=== PATIENT | female | born 1950 | race Caucasian/White ===

== ENCOUNTER 2020-10-27 10:41 | Outpatient (CLI) | payer OTHER, SELFPAY ==
--- NOTE | ~2020-10-27 | MM_ITS ---
EXAMINATION: MM screening [facility] BI w cesar HISTORY: Screening TECHNIQUE: Craniocaudal and mediolateral oblique 3-D tomosynthesis images were obtained and synthetic 2-D images were generated. CAD analysis was submitted and interpreted. COMPARISON: Comparison to multiple prior studies sequentially, with oldest reviewed study dated 04/26. BREAST PARENCHYMAL COMPOSITION: The breasts are almost entirely fatty. FINDINGS: There is no evidence of suspicious mass, calcification, or architectural distortion to sugg est malignancy in either breast. There has been no suspicious interval change. IMPRESSION: 1. No mammographic evidence of malignancy. 2. Recommend routine screening mammography in one year. BI-RADS Category 1: Negative Reviewed, dictated and finalized at location A.
== END 2020-10-27 10:42 | disposition home or self-care (01) ==
LOC: ANHIMG 10:45
PROVIDERS: PCP Internal Medicine; Visit Provider Nurse Practitioner
DX: Z12.31 Encounter for screening mammogram for malignant neoplasm of breast (principal)
CPT/HCPCS: 77063; 77067

== ENCOUNTER 2021-06-14 12:12 | Outpatient (CLI) | payer OTHER, SELFPAY ==
--- NOTE | ~2021-06-14 | DEXA_ITS ---
Bone Density Report Name: CHARLEE HOUSE Age: 70 Sex: Female Ethnicity: White Date of : 1950 Indication: postmenopausal; Referring Provider: Simran Rondon Study: Bone densitometry was performed. Exam Date: June 14, 2021 Accession number: [id number] Bone Density: Region BMD T-score Z-score Classification AP Spine (L1-L4) 1.123 0.7 2.9 Normal Femoral Neck (Left) 0.808 -0.4 1.6 Normal Total Hip (Left) 0.971 0.2 1.9 Normal Total Hip Bilateral Avg 0.965 0.2 1.9 Normal Femoral Neck (Right) 0.854 0.0 2.0 Normal Total Hip (Right) 0.958 0.1 1.8 Normal World Health Organization criteria for BMD impression classify patients as: Normal (T-score at or above -1.0), Osteopenia (T-score between -1.0 and -2.5), or Osteoporosis (T-score at or below -2.5). 10-year Fracture Risk: FRAX not reported because: All T-scores for Spine Total, Hip Total, Femoral Neck at or above -1.0 Previous Exams: Region Exam Age BMD T-score BMD Change BMD Change Date g/cm2 vs Baseline vs Previous AP Spine(L1-L4) 06/14/2021 70 1.123 0.7 0.075(7.2%)# 0.075(7.2%)# 05/07/2012 61 1.048 0.0 Total Hip(Left) 06/14/2021 70 0.971 0.2 0.028(2.9%)# -0.021(-2.1%) 03/27/2019 68 0.992 0.4 0.049(5.2%)# 0.049(5.2%)# 05/07/2012 61 0.943 0.0 Total Hip(Right) 06/14/2021 70 0.958 0.1 -0.015(-1.5%)# -0.031(-3.1%)* 03/27/2019 68 0.989 0.4 0.016(1.7%)# 0.016(1.7%)# 05/07/2012 61 0.973 0.3 *Denotes significance at 95% confidence level, LSC for AP Spine = 0.022 g/cm2, LSC for Total Hip = 0.027 g/cm2 Clinical Information Provided by Patient: Has used the following medications: Vitamin D Patient maximum height was 65 Menopause Age: 48 Drinks caffeinated beverages Onset of menses at age 8 Number of children 2 Impression: The patient has normal bone mass. The BMD for the Total Hip(Right) decreased, changing by -3.1% since the last DXA exam. Discussion: BONE DENSITY IS ABOVE THE MINIMUM DESIRABLE LEVEL AT ALL SKELETAL SITES TESTED. This patient?s bone mineral density is above the minimum desirable level (T-score -1.0 or better) at all sites measured. The patient should follow a healthful lifestyle (good nutrition with adequate calcium and vitamin D, and appropriate weight-bearing exercise). Follow-Up: Consider repeating this study in 3 to 4 years to reassess this patient's status, or sooner if there is some new clinical indication.
== END 2021-06-14 12:13 | disposition home or self-care (01) ==
LOC: ANHIMG 12:14
PROVIDERS: PCP Internal Medicine; Visit Provider Nurse Practitioner
DX: Z78.0 Asymptomatic menopausal state (principal)
CPT/HCPCS: 77080

== ENCOUNTER 2021-07-13 13:03 | Outpatient (CLI) | payer OTHER, SELFPAY ==
--- NOTE | ~2021-07-13 | US_ITS ---
EXAMINATION: US soft tissue head and neck DATE: 07/13/2021 13:47 INDICATION: Left neck pain with burning sensation and pulsatile tinnitus. TECHNIQUE: Multiple grayscale and Doppler ultrasound images of the left neck from the preauricular to the supraclavicular regions were obtained. COMPARISON: None FINDINGS: A few normal-sized cervical lymph nodes identified on the provided images and real-time imaging. No a bnormal masses or fluid collections identified. Visualized portion of the left thyroid is unremarkabl e. Small amount of atherosclerotic plaque at the left carotid bulb which does not appear hemodynamica lly significant. IMPRESSION: 1. Small amount of atherosclerotic plaque at the left carotid bulb which does not appear hemodynamica lly significant. 2. Otherwise unremarkable ultrasound of the left neck with no etiology for reported pain and no abnor mal masses or fluid collections. Reviewed, dictated and finalized at location A. FARM LABORER IMPRESSION: 1. Small amount of atherosclerotic plaque at the left carotid bulb which does n ot appear hemodynamically significant. 2. Otherwise unremarkable ultrasound of the left neck with no etiology for repo rted pain and no abnormal masses or fluid collections.
== END 2021-07-13 13:04 | disposition home or self-care (01) ==
LOC: ANHIMG 13:06
PROVIDERS: PCP Internal Medicine; Visit Provider Internal Medicine
DX: M54.2 Cervicalgia (principal)
CPT/HCPCS: 76536

== ENCOUNTER 2021-12-02 07:33 | Outpatient (CLI) | payer OTHER, SELFPAY ==
--- NOTE | ~2021-12-02 | MM_ITS ---
EXAMINATION: MM screening [facility] BI w cesar HISTORY: Screening mammogram TECHNIQUE: Craniocaudal and mediolateral oblique 3-D tomosynthesis images were obtained and synthetic 2-D images were generated. CAD analysis was submitted and interpreted. COMPARISON: 10/27/2020, 03/27/2019 BREAST PARENCHYMAL COMPOSITION: There are scattered areas of fibroglandular density. FINDINGS: There is no suspicious mass, calcification, or architectural distortion to suggest malignan cy in either breast. There has been no suspicious interval change. IMPRESSION: 1. No mammographic evidence of malignancy. 2. Recommend routine screening mammography in one year. BI-RADS Category 1: Negative Reviewed, dictated and finalized at location A.
== END 2021-12-02 07:34 | disposition home or self-care (01) ==
PROVIDERS: PCP Internal Medicine; Visit Provider Internal Medicine
DX: Z12.31 Encounter for screening mammogram for malignant neoplasm of breast (principal)
CPT/HCPCS: 77063; 77067

== ENCOUNTER 2022-08-11 10:52 | Emergency (ER) | payer OTHER, SELFPAY ==
[2022-08-11 11:30] VITALS: BP 154/83; PULSE 73; RESP 16; TEMP 37; O2SAT 99
--- NOTE | 2022-08-11 12:07 | ED.SKABFB ---
HPI - Skin/Abscess/Foreign Bdy General Chief complaint: Extremity Injury, Upper Stated complaint: right infected pinky finger Time Seen by Provider: 08/11/22 12:07 Source: patient Mode of arrival: ambulatory Limitations: no limitations History of Present Illness HPI narrative: 71-year-old female presents with concern for infection to nail of right little finger. She reports redness, tenderness on palpation. States that the nail is thicker than usual. Is unable to get in with her primary care physician for another 2 weeks. All systems reviewed and negative except as noted above. Related Data Home Medications Medication Instructions Recorded Confirmed cholecalciferol (vitamin D3) 250 250 mcg PO DAILY 04/05/21 06/07/22 mcg (10,000 unit) tablet omega-3 fatty acids 1,000 mg 1,000 mg PO DAILY 04/05/21 06/07/22 capsule (Fish Oil Concentrate) cetirizine 10 mg tablet 10 mg PO DAILY PRN 10/19/21 06/07/22 Allergies Allergy/AdvReac Type Severity Reaction Status Date / Time Sulfa (Sulfonamide Allergy Unknown Blurry Verified 08/11/22 12:04 Antibiotics) Vision Review of Systems Review of Systems: CONSTITUTIONAL: Denies fever, chills, or sweats. EYES: Denies visual changes, redness, or discharge. ENT: Denies rhinorrhea, congestion, sore throat, or otalgia. CARDIOVASCULAR: Denies chest pain, palpitations, or edema. RESPIRATORY: Denies cough or dyspnea. GASTROINTESTINAL: Denies abdominal pain, nausea, vomiting, or diarrhea. GENITOURINARY: Denies dysuria or hematuria. SKIN: Denies rash or itching. Reports redness and tenderness to right little finger nail. MUSCULOSKELETAL: Denies back pain, joint pain, or myalgia. NEUROLOGIC: Denies headache, numbness, or weakness. PSYCHIATRIC: Denies anxiety or depression. All other systems reviewed are negative, except as documented in HPI. [facility] Past Medical History Medical History Hypertension Mixed hyperlipidemia Vitamin D deficiency Vitamin deficiency Surgical History Surgical History History of appendectomy History of repair of left rotator cuff History of tonsillectomy Family History Family History Mother Family history of lung cancer Patient's mother is Sibling Patient's sister is in good health Patient's brother is in good health Social History Social History Smoking status: Never smoker Second hand tobacco smoke exposure: No Alcohol intake: current Alcohol use details: social Substance use: never Substance use type: does not use Comments At time of signature, agree with nursing past medical, surgical, social and family history. There is no relevant family history pertinent to the presenting complaint. Exam Narrative: GENERAL: This is a well-nourished, well-developed patient, in no apparent distress. HEAD: normocephalic, atraumatic. EYES: PERRL. Sclera clear/white. Vision is grossly intact. EARS: External ears normal NOSE: External nose normal NECK: Neck supple, non-tender without lymphadenopathy, masses or thyromegaly. CARDIOVASCULAR: Regular rate and rhythm without murmurs, gallops, or rubs. RESPIRATORY: Clear to auscultation. Breath sounds equal bilaterally. No wheezes, rales, or rhonchi. SKIN: warm, Dry, intact with no suspicious lesions or rash, good texture and turgor. mild erythema noted under nail bed of right little finger. No drainage noted. Tender on palpation. NEURO: awake, alert, and oriented to person, place and time. There were no obvious focal neurologic abnormalities. EXTREMITIES: No joint tenderness, effusion, or edema noted. Course Course Level of Care: Express Care Visit Vital Signs Vital signs: Vital Signs Temperature 37.0 C 08/11/22 11:30 Pulse
== END 2022-08-11 12:25 | disposition home or self-care (01) ==
PROVIDERS: Emergency Provider Nurse Practitioner Family
DX: L03.011 Cellulitis of right finger (principal); I10 Essential (primary) hypertension; E78.2 Mixed hyperlipidemia; E55.9 Vitamin D deficiency, unspecified
CPT/HCPCS: 99213; G0463

== ENCOUNTER 2023-01-09 12:45 | Emergency (ER) | payer OTHER, SELFPAY ==
[2023-01-09 12:58] VITALS: BP 170/84; PULSE 79; RESP 16; TEMP 35.8; O2SAT 100
--- NOTE | 2023-01-09 13:01 | ED.DENTAL ---
HPI - Dental/Oral General Chief complaint: Dental/Oral Stated complaint: Sore in mouth; may be infected Time Seen by Provider: 01/09/23 13:01 Source: patient, RN notes reviewed and old records reviewed Mode of arrival: ambulatory Limitations: no limitations History of Present Illness HPI Narrative: 72 year old female who presents to [facility] care with complaints of abscess to gum along the anterior aspect of her bottom left gum near the 22 tooth with ulcer to inner mouth also left lower mouth that are painful and making it difficult to eat. Patient reports that she has used some salt water gargles which has helped some but pain remains 12/03, is burning. MD Complaint: tooth pain (abscess anterior gum along #22 tooth and ulcer to inner left mouth) Onset (ago): day(s) (3-4 days) Severity scale (1-10): 6 Treatment prior to arrival: other (salt water gargles) Related Data Home Medications Medication Instructions Recorded Confirmed cholecalciferol (vitamin D3) 250 250 mcg PO DAILY 04/05/21 01/09/23 mcg (10,000 unit) tablet Allergies Allergy/AdvReac Type Severity Reaction Status Date / Time Sulfa (Sulfonamide Allergy Unknown Blurry Verified 01/09/23 12:55 Antibiotics) Vision Review of Systems Review of Systems: CONSTITUTIONAL: Denies fever, chills, or sweats. ENT: Denies rhinorrhea, congestion, sore throat, or otalgia. Reports dental pain from gum abscess near anterior aspect #22 tooth and also ulcer to inner left side of inner mouth CARDIOVASCULAR: Denies chest pain, palpitations, or edema. RESPIRATORY: Denies cough or dyspnea. SKIN: Denies rash or itching. MUSCULOSKELETAL: Denies myalgia.[facility] NEUROLOGIC: Denies headache All systems reviewed & are unremarkable except as noted in HPI and below PMFSH Past Medical History Medical History Hypertension Mixed hyperlipidemia Vitamin D deficiency Surgical History Surgical History History of appendectomy History of repair of left rotator cuff History of tonsillectomy Family History Family History Mother Family history of lung cancer Patient's mother is Sibling Patient's sister is in good health Patient's brother is in good health Social History Social History Social History: Lives at home with and their grandson who they raise, he is an adult but is mentally disabled. 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 Smoking status: Never smoker Second hand tobacco smoke exposure: No Alcohol intake: current Alcohol use details: social Substance use: never Substance use type: does not use Lack of Transportation: No Lack of Food: Never True Current Housing: I Have Housing Concerned About Future Housing: No Difficulty Paying Gas/Electric Bills: No Difficulty Paying for Meds: No Currently Unemployed: No Education: High School Diploma/GED Difficulty w/ Childcare or Family Care: No Comments At time of signature, agree with nursing past medical, surgical, social and family history. There is no relevant family history pertinent to the presenting complaint Exam Narrative: GENERAL: Well-appearing, well-nourished, and in no acute distress. HEAD: Normocephalic, atraumatic. EYES: PERRLA and EOMI. ENT: Nares clear, no rhinorrhea or epistaxis. Mucous membranes moist. No noted dental caries or missing teeth, gum ulcer on anterior gum near #22 tooth with ulcer to inner apect of left inner mouth, no Bill angina noted and no trismus noted, no drainage from gum abscess noted. NECK: Supple. no lymphadenopathy CHEST: Clear to auscultation. No respiratory distress.SAO2 100% on room air HEART: Regular rate and rhythm. No murmur heard. Normal peripheral pulses. SKIN: Warm, dry, no
== END 2023-01-09 13:15 | disposition home or self-care (01) ==
PROVIDERS: Emergency Provider Registered Nurse; PCP Family Medicine
DX: K05.20 Aggressive periodontitis, unspecified (principal); K12.0 Recurrent oral aphthae; I10 Essential (primary) hypertension; E78.2 Mixed hyperlipidemia; E55.9 Vitamin D deficiency, unspecified
CPT/HCPCS: 99213; G0463

== ENCOUNTER 2023-03-03 09:09 | Emergency (ER) | payer OTHER, SELFPAY ==
[2023-03-03] VITALS (20 sets, daily range): BP systolic 146–202; BP diastolic 68–105; PULSE 70–88; RESP 12–25; TEMP 36.2; O2SAT 98–100
--- NOTE | ~2023-03-03 | CT_ITS ---
EXAMINATION: CT brain wo con INDICATION: Dizziness COMPARISON: None TECHNIQUE: Standard unenhanced head CT. The dose-length product (DLP) was 605.33 mGy-cm. The mA was a djusted according to patient size. Iterative reconstruction technique was employed. FINDINGS: No acute intraparenchymal hemorrhage. No evidence of mass lesion. No evidence of acute infa rction. There is mild periventricular and subcortical hypodensity probably related to small vessel is chemic disease. There is mild prominence of the sulci and ventricles related to cerebral atrophy. Int racranial calcified cerebral atherosclerosis is noted. No extra-axial collections. No mass effect or midline shift. Changes in the globes are likely from ocular lens surgery. There is minimal opacificat ion of the left sphenoid sinus. IMPRESSION: 1. No acute intracranial abnormality. 2. Age related findings. Reviewed, dictated and finalized at location B.
--- NOTE | 2023-03-03 09:24 | ECG_ITS ---
Measurements Intervals [place] Rate: 75 P: 47 NM: 192 QRS: -31 QRSD: 78 T: 63 QT: 375 QTc: 419 Interpretive Statements SINUS RHYTHM LEFT AXIS DEVIATION POSSIBLE LEFT ATRIAL ENLARGEMENT LOW QRS VOLTAGE IN PRECORDIAL LEADS CONSIDER INFERIOR INFARCT, AGE INDETERMINATE BASELINE ARTIFACT- I, II, III, AVR, AVL, AVF, V1-V2 ABNORMAL ECG NO PREVIOUS ECG AVAILABLE FOR COMPARISON Electronically Signed On 03-03-2023 9:43:18 CDT by Jorge Reddy D.O.
[2023-03-03 09:40] LABS: Basophils Percent Auto 0.4 % (0.2-1.2); Eosinophils Absolute Auto 0.1 K/mm3 (0-0.3); Eosinophils Percent Auto 2.8 % (0-4.4); Hematocrit 42.2 % (37.0-47.0); Hemoglobin 14.1 g/dL (12.0-15.0); Immature Granulocyte Absolute 0.02 K/mm3 (0.00-0.031); Immature Granulocyte Percent A 0.4 % (0-0.5); Lymphocytes Absolute Auto 1.54 K/mm3 (0.9-3.2); Lymphocytes Percent Auto 33.6 % (18.3-44.2); Mean Corpuscular HGB Conc 33.4 g/dl (32-36); Mean Corpuscular Hemoglobin 31.6 pg (26-34); Mean Corpuscular Volume 94.6 fl (80-100); Mean Platelet Volume 9.7 fl (7.4-10.4); Monocytes Absolute Auto 0.4 K/mm3 (0.1-0.6); Neutrophils Absolute Auto 2.5 K/mm3 (1.3-6.7); Neutrophils Percent Auto 53.8 % (45.5-73.1); Platelet Count Result 222 k/mm3 (150-375); Red Blood Count 4.46 M/mm3 (4.2-5.4); White Blood Count 4.6 K/mm3 (4.5-10.0)
--- NOTE | 2023-03-03 09:45 | PC.NURSE ---
Modesto Smith noted blood in stool of pt.
--- NOTE | 2023-03-03 09:48 | ED.DIZZY ---
HPI - Dizziness General Chief Complaint: Dizziness Stated Complaint: rectal bleeding with dizziness Time Seen by Provider: 03/03/23 09:18 Source: patient Mode of arrival: ambulatory Limitations: no limitations History of Present Illness HPI Narrative: 72-year-old female presents today with complaints of dizziness and high blood pressure hours prior to arrival. Dizziness or imbalance feeling is still there. Patient states that she had an episode of dizziness at work today she went to the school nurse and her blood pressure was elevated. Patient then came in here. Patient has had a couple recent episodes of rectal bleeding for which she has an appointment with her primary care doctor today. Patient states it was 1 episode a couple days ago but had not repeated until this morning. Patient did take medications this morning. Patient states she feels imbalance denies the room spinning. Patient denies any chest pain or shortness of breath at this time. Patient states that if she felt like she would get up she would fall. Denies ever having a feeling like this before in the past. Related Data Home Medications Medication Instructions Recorded Confirmed cholecalciferol (vitamin D3) 250 250 mcg PO DAILY 04/05/21 02/07/23 mcg (10,000 unit) tablet Allergies Allergy/AdvReac Type Severity Reaction Status Date / Time Sulfa (Sulfonamide Allergy Unknown Blurry Verified 03/03/23 09:21 Antibiotics) Vision Review of Systems Review of Systems: All systems reviewed & are unremarkable except as noted in HPI and below PMFSH Past Medical History Medical History Hypertension Mixed hyperlipidemia Vitamin D deficiency Surgical History Surgical History History of appendectomy History of repair of left rotator cuff History of tonsillectomy Family History Family History Mother Family history of lung cancer Patient's mother is Sibling Patient's sister is in good health Patient's brother is in good health Social History Social History Social History: Lives at home with and their grandson who they raise, he is an adult but is mentally disabled. 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 Smoking status: Never smoker Second hand tobacco smoke exposure: No Alcohol intake: current Alcohol use details: social Substance use: never Substance use type: does not use Lack of Transportation: No Lack of Food: Never True Current Housing: I Have Housing Concerned About Future Housing: No Difficulty Paying Gas/Electric Bills: No Difficulty Paying for Meds: No Currently Unemployed: No Education: High School Diploma/GED Difficulty w/ Childcare or Family Care: No Living arrangements: with family Spiritual care concerns: No Agree to blood products: Yes Exam Const: General: cooperative, healthy appearing, comfortable, no acute distress and well developed Orientation/consciousness: patient oriented x3 HENMT: Head: normal to inspection Eyes: General: appearance normal, both eyes and all related structures Resp: Effort & Inspection: normal respiratory effort and able to speak in complete sentences Auscultation: clear to auscultation bilaterally Cardio: Rate: regular rate Rhythm: regular rhythm Heart sounds: S1 normal heart sound present and S2 normal heart sound present GI: Other: No external hemorrhoids noted. Patient with blood in bowel movement Hemoccult not performed. Neuro: General: patient oriented x3 Cranial nerves: Yes CN's II-XII intact bilaterally Speech: normal speech Gait exam (Neuro): Normal gait present Motor exam (neuro): 5/5 motor strength present throughout Course Reevaluation(s) Reevaluation #1: Scarlett
[2023-03-03 09:50] LABS: Alanine Aminotransferase 24 U/L (6-35); Albumin Level 4.4 g/dL (3.5-5.1); Alkaline Phosphatase 93 U/L (38-126); Anion Gap 8 mmol/L (8-16); Aspartate Amino Transferase 33 U/L (14-36); Bilirubin,Total 0.6 mg/dL (0.2-1.3); Blood Urea Nitrogen 12 mg/dL (7-17); Calcium 9.7 mg/dL (8.4-10.2); Carbon Dioxide 30 mmol/L (22-30); Chloride 99 mmol/L (98-107); Estimated CRCL calculation 63 ml/min; Estimated Glomerular Filt Rate > 60; Glucose 98 mg/dL (65-110); Potassium 3.5 mmol/L (3.4-5.0); Sodium 137 mmol/L (137-145)
[2023-03-03 10:02] LABS: Troponin I < 0.012 ng/mL (0.000-0.034)
[2023-03-03 10:09] LABS: Appearance Urine Clear (Clear); Bacteria Urine None Seen /hpf; Bilirubin Urine Negative (Negative); Blood Urine Trace (Negative); Color Urine Yellow (Yellow); Glucose Urine UA Negative (Negative); Ketones Urine Negative (Negative); Leukocyte Esterase Ur 1+ LEU/UL (Negative); Nitrate Urine Negative (Negative); Non Pathogenic Casts 0-2; Protein Urine Negative (Negative); Specific Grav Ur 1.006 (1.001-1.035); Squamous Epithelial Cell Urine None seen /hpf (Few); Urobilinogen Urine 0.2 mg/dL (<2.0); WBC Urine 21-50 /hpf; pH Urine 7.5 (5.0-9.0)
[2023-03-03] MEDS: MECLIZINE HCL 25 MG TABLET PO (10:22)
[2023-03-03 10:32] LABS: Add Urine Microscopic? YES
== END 2023-03-03 13:03 | disposition home or self-care (01) ==
PROVIDERS: Emergency Provider Nurse Practitioner Family; PCP Family Medicine
DX: H81.10 Benign paroxysmal vertigo, unspecified ear (principal); K62.5 Hemorrhage of anus and rectum; R82.998 Other abnormal findings in urine; I10 Essential (primary) hypertension; E78.2 Mixed hyperlipidemia; E55.9 Vitamin D deficiency, unspecified; R94.31 Abnormal electrocardiogram [ECG] [EKG]
CPT/HCPCS: 36415; 70450; 80053; 81001; 84484; 85025; 87077; 87086; 87186; 93005; 99284; A9270

== ENCOUNTER → 2023-08-21 13:48 | Outpatient (CLI) | payer OTHER, SELFPAY ==
--- NOTE | ~2023-08-21 | XR_ITS ---
EXAM: XR cervical spine 4-5V DATE: 08/21/2023 14:02 HISTORY: M79.603 - Pain in arm, unspecified . COMPARISON: None available. FINDINGS: Craniocervical association and atlantoaxial joint are aligned. No prevertebral soft tissue swelling. Moderate degenerative change at the atlantodental interval. Reversed lordosis centered at C4. 2 mm anterolisthesis at C3-4. Multilevel moderate loss of disc height and marginal osteophytosis. Mild facet sclerosis and hypertrophy. Carotid atherosclerotic calcification. IMPRESSION: Grade 1 anterolisthesis at C3-4. Multilevel moderate degenerative disc disease. Multileve l mild facet arthropathy. Reviewed, dictated and finalized at location K. ON MAKER IMPRESSION: Grade 1 anterolisthesis at C3-4. Multilevel moderate degenerative d isc disease. Multilevel mild facet arthropathy.
--- NOTE | ~2023-08-21 | XR_ITS ---
EXAM: XR elbow RT 2V DATE: 08/21/2023 14:02 HISTORY: M79.603 - Pain in arm, unspecified . COMPARISON: None available. FINDINGS: Decreased mineralization. No fracture or dislocation. No lytic or blastic lesion. Joint sp aces are maintained. Mild lateral enthesopathy. No erosion or periosteal change. Soft tissues within normal limits. IMPRESSION: No acute osseous finding in the right elbow. Reviewed, dictated and finalized at location K. S AND SERVICE REPRESENTATIVE
== END ==
PROVIDERS: PCP Physician Assistant; Visit Provider Physician Assistant
DX: M79.601 Pain in right arm (principal); M50.30 Other cervical disc degeneration, unspecified cervical region
CPT/HCPCS: 72050; 73070

== ENCOUNTER 2023-11-19 12:42 | Emergency (ER) | payer OTHER, SELFPAY ==
[2023-11-19 12:58] VITALS: BP 162/74; PULSE 71; RESP 16; TEMP 36.9; O2SAT 98
--- NOTE | 2023-11-19 13:33 | ED.SKABFB ---
HPI - Skin/Abscess/Foreign Bdy General Chief complaint: Skin/Abscess/Foreign Body Stated complaint: Bite on Neck Time Seen by Provider: 11/19/23 13:33 Source: patient, RN notes reviewed and old records reviewed Mode of arrival: ambulatory Limitations: no limitations History of Present Illness HPI narrative: 72-year-old female to [facility] for complaint loss sting to right anterior lower neck. Patient states that she felt it neck 3 days ago and swatted it when it stung her. Patient's says with certainty that it was a black wasp. Patient denies history of allergies to insect bites. Patient states that she has been keeping area clean and dry, however reports increased redness, swelling and discomfort to surrounding area. Patient denies cough, shortness of breath, difficulty swallowing, fever, nausea. Patient hypertensive in triage however patient in no acute distress in exam room. Related Data Home Medications Medication Instructions Recorded Confirmed cholecalciferol (vitamin D3) 250 250 mcg PO DAILY 04/05/21 11/19/23 mcg (10,000 unit) tablet Allergies Allergy/AdvReac Type Severity Reaction Status Date / Time Sulfa (Sulfonamide Allergy Unknown Blurry Verified 11/19/23 13:12 Antibiotics) Vision Review of Systems Review of Systems: All systems reviewed & are unremarkable except as noted in HPI and below Constitutional: Constitutional: Reports as per HPI, Denies fatigue, Denies fever(s) and Denies malaise Eyes: Eyes: Reports no additional eye complaints ENT: Reports system reviewed and no additional complaints, except as documented Cardiovascular: Cardiovascular: Reports no additional cardiovascular complaints, Denies chest pain and Denies dyspnea Respiratory: Respiratory: Reports no additional respiratory complaints, Denies cough and Denies dyspnea Musculoskeletal: Musculoskeletal: Reports no additional musculoskeletal complaints Integumentary/Breasts: Skin/Breast: Reports as per HPI, Reports erythema, Reports skin pain ( right lower anterior neck) and Reports skin swelling Neurologic: Reports system reviewed and no additional complaints, except as documented Psychiatric: Psychiatric: Reports no additional psychiatric complaints [facility] Past Medical History Medical History Hypertension Mixed hyperlipidemia Vitamin D deficiency Surgical History Surgical History History of appendectomy History of repair of left rotator cuff History of tonsillectomy Family History Family History Mother Family history of lung cancer Patient's mother is Sibling Patient's sister is in good health Patient's brother is in good health Social History Social History Social History: Lives at home with and their grandson who they raise, he is an adult but is mentally disabled. 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 Smoking status: Never smoker Second hand tobacco smoke exposure: No Alcohol intake: current Alcohol use details: social Substance use: never Substance use type: does not use Lack of Transportation: No Lack of Food: Never True Current Housing: I Have Housing Concerned About Future Housing: No Difficulty Paying Gas/Electric Bills: No Difficulty Paying for Meds: No Currently Unemployed: No Education: High School Diploma/GED Difficulty w/ Childcare or Family Care: No Living arrangements: with family Spiritual care concerns: No Agree to blood products: Yes Comments At the time of my signature, I reviewed and agree with the nursing past medical, surgical, social, and family history. There is no relevant family history pertinent to the patient complaint. Exam Const: General
== END 2023-11-19 13:50 | disposition home or self-care (01) ==
PROVIDERS: Emergency Provider Nurse Practitioner Family; PCP Family Medicine
DX: L03.221 Cellulitis of neck (principal); T63.461A Toxic effect of venom of wasps, accidental (unintentional), initial encounter; I10 Essential (primary) hypertension; E78.2 Mixed hyperlipidemia; E55.9 Vitamin D deficiency, unspecified
CPT/HCPCS: 99213; G0463

== ENCOUNTER 2023-11-29 14:26 | Outpatient (CLI) | payer OTHER, SELFPAY ==
--- NOTE | ~2023-11-29 | US_ITS ---
EXAMINATION: US soft tissue head and neck DATE: 11/29/2023 14:41 INDICATION: Cutaneous abscess of neck. TECHNIQUE: Multiple grayscale and Doppler ultrasound images of the neck were obtained. COMPARISON: Head CT 03/03/2023 FINDINGS: In the patient's area of concern in the right neck, there is an ill-defined 12 mm hypoechoi c subcutaneous mass. IMPRESSION: 1. 12 mm subcutaneous mass in the right neck, likely inflammation. Reviewed, dictated and finalized at location A.
== END 2023-11-29 14:27 ==
LOC: MICIMG 14:27
PROVIDERS: PCP Family Medicine; Visit Provider Surgery
DX: L02.11 Cutaneous abscess of neck (principal)
CPT/HCPCS: 76536

== ENCOUNTER 2024-05-14 14:11 | Outpatient (CLI) | payer OTHER, SELFPAY ==
--- NOTE | ~2024-05-14 | XR_ITS ---
HISTORY: M25.511 - Pain in right shoulder COMPARISON: None TECHNIQUE: 4 views of the left shoulder were performed FINDINGS: No acute fracture. The glenohumeral and acromioclavicular joint space is maintained The visualized portion of the adjacent right lung is clear. The humeral head is well seated within the glenoid fossa. IMPRESSION: No acute fracture or anterior dislocation. Reviewed, dictated and finalized at location A. PER BIRD
== END 2024-05-14 14:12 | disposition home or self-care (01) ==
PROVIDERS: PCP Family Medicine; Visit Provider Student in an Organized Health Care Education/Training Program
DX: M25.511 Pain in right shoulder (principal)
CPT/HCPCS: 73030

== ENCOUNTER 2024-10-23 13:57 | Outpatient (CLI) | payer OTHER, SELFPAY ==
--- NOTE | ~2024-10-23 | DEXA_ITS ---
Bone Density Report Name: CHARLEE HOUSE Age: 73 Sex: Female Ethnicity: White Date of : 1950 Indication: postmenopausal; screening for osteoporosis; height loss; Referring Provider: KIMBERLY DAMON Study: Bone densitometry was performed. Exam Date: October 23, 2024 Accession number: [id number] Bone Density: Region BMD T-score Z-score Classification AP Spine(L1-L4) 1.107 0.5 3.0 Normal Femoral Neck (Left) 0.798 -0.5 1.7 Normal Total Hip (Left) 0.998 0.5 2.3 Normal Femoral Neck (Right) 0.844 0.0 2.1 Normal Total Hip (Right) 1.016 0.6 2.4 Normal Total Hip Mean 1.007 0.6 2.4 Normal World Health Organization criteria for BMD impression classify patients as: Normal (T-score at or above -1.0), Osteopenia (T-score between -1.0 and -2.5), or Osteoporosis (T-score at or below -2.5). 10-year Fracture Risk: FRAX not reported because: All T-scores for Spine Total, Hip Total, Femoral Neck at or above -1.0 Previous Exams: Region Exam Age BMD T-score BMD Change BMD Change Date g/cm2 vs Baseline vs Previous AP Spine (L1-L4) 10/23/2024 73 1.107 0.5 0.059 (5.6%)# -0.016 (-1.4%) 06/14/2021 70 1.123 0.7 0.075 (7.2%)# 0.075 (7.2%)# 05/07/2012 61 1.048 0.0 Total Hip(Left) 10/23/2024 73 0.998 0.5 0.055 (5.8%)# 0.027 (2.8%) 06/14/2021 70 0.971 0.2 0.028 (2.9%)# -0.021 (-2.1%) 03/27/2019 68 0.992 0.4 0.049 (5.2%)# 0.049 (5.2%)# 05/07/2012 61 0.943 0.0 Total Hip(Right) 10/23/2024 73 1.016 0.6 0.043 (4.4%)# 0.058 (6.0%)* 06/14/2021 70 0.958 0.1 -0.015 (-1.5%) -0.031 (-3.1%) 03/27/2019 68 0.989 0.4 0.016 (1.7%)# 0.016 (1.7%)# 05/07/2012 61 0.973 0.3 *Denotes significance at 95% confidence level, LSC for AP Spine = 0.022 g/cm2, LSC for Total Hip = 0.027 g/cm2 # Denotes dissimilar scan types or analysis methods Clinical Information Provided by Patient: Has used the following medications: Vitamin D Patient maximum height was 65 Menopause Age: 48 Drinks caffeinated beverages Onset of menses at age 8 Number of children 2 Impression: The patient has normal bone mass. No significant bone loss was observed. Discussion: BONE DENSITY IS ABOVE THE MINIMUM DESIRABLE LEVEL AT ALL SKELETAL SITES TESTED. This patient?s bone mineral density is above the minimum desirable level (T-score -1.0 or better) at all sites measured. The patient should follow a healthful lifestyle (good nutrition with adequate calcium and vitamin D, and appropriate weight-bearing exercise). Follow-Up: Consider repeating this study in 5 years or sooner if there is some new clinical indication. Reported by: POOJA on 10/23/2024 2:38:00 PM. Reviewed, dictated and finalized at location Umberto WILSON
--- OUTSIDE RECORDS SUMMARY | 2024-10-23 14:55 | XMS_ITS | Clinical Summary ---
Author Organization [facility] Address [address] [place] [address] Care Team Providers Care Grain Loader Name Role Phone Unavailable Primary Care Provider Unavailabl e Social History Tobacco Use Types Packs/Day Years Used Date Smoking Tobacco: Never Assessed Comments Unknown Sex and Gender Information Value Date Recorded Sex Assigned at Not on file Legal Sex Female 8:05 PM CDT Gender Identity Not on file Sexual Orientation Not on file Last Filed Vital Signs Vital Sign Reading Time Taken Comments Blood Pressure 143/84 03/13/2013 8:22 AM CDT Pulse 81 03/13/2013 8:22 AM CDT Temperature - - Respiratory Rate - - Oxygen Saturation - - Inhaled Oxygen Concentration - - Weight 69.9 kg (154 lb) 03/13/2013 8:22 AM CDT Height 165.1 cm (5' 5 ) 03/13/2013 8:22 AM CDT Body Mass Index 25.63 03/13/2013 8:22 AM CDT Plan of Treatment Health Maintenance Due Date Last Done Comments Colorectal Cancer Screening Colonoscopy (10 Years) 1950 Hepatitis C 1966 DTaP, Tdap and Td Vaccines ( 1 - Tdap) 12/17/1967 Pneumococcal Vaccine: 50+ Ye ars (1 of 1 - PCV) 1998 Zoster Vaccines (1 of 2) 1998 Dexa Scan (General) 2013 RSV Immunization or 60+ Years (1 - 1-dose 75+ series) 12/17/2023 COVID-19 Vaccine ( - 2023-2 5 season) 2024 Meningococcal B Vaccine Aged Out No l onger eligible based on patient's age to complete this topic Meningococcal Vaccine Aged Out No shaan fanta eligible based on patient's age to complete this topic RSV Immunizations Under 20 Months Aged Out No longer eligible based on patient's age to complete this topic
--- OUTSIDE RECORDS SUMMARY | 2024-10-23 14:55 | XMS_ITS | Clinical Summary ---
Author Organization [facility] Address [address] [place] [address] Care Team Providers Care Circular Knitter Name Role Phone Noble Claire MD Primary Care Provider [phone] Source Comments [facility],non-[facility] Affiliates and Associated Physician Practices is amultiple site organization consisting of ambulatory clinics and hospital sitesin [place], [place], [place] and [place]. This disclosure is being madepursuant to the Care Everywhere program and may not contain all information available regarding this patient. Last updated 18.[facility] [employer] Social History Tobacco Use Types Packs/Day Years Used Date Smoking Tobacco: Never Assessed Comments Unknown Sex and Gender Information Value Date Recorded Sex Assigned at Not on file Legal Sex Female 4:08 AM CDT Gender Identity Not on file Sexual Orientation Not on file Plan of Treatment Health Maintenance Due Date Last Done Comments BONE DENSITY TESTING 1950 COLOGUARD (AGES 45-75) - COL ON CA SCREENING 1950 COLON MONITORING 1948 COLONOSCOPY - COLON CA SCREENING 1948 CT COLONOGRAPHY - COLON CA SCREENING 1950 Colorectal Cancer Screening 1950 FIT - COLON CA SCREENING 1948 FLEX SIG - COLON CA SCREENING 1948 LIPID TESTING 1950 MAMMOGRAM 1950 HEPATITIS C SCREENING 12/12/1966 DTAP/TDAP/TD VACCINES (1 - Tdap) 12/17/1967 PNEUMOCOCCAL VACCINE 50+ (1 of 1 - PCV) 1998 ZOSTER VACCINE (1 of 2) 1998 Respiratory Syncytial Virus (RSV) Vaccine Pt: or over 60 yrs (1 - 1-dose 75+ series) 12/17/2023 COVID-19 VACCINE ( - 2023-2 5 season) 2024 DEPRESSION SCREENING 06/26/2024 INFLUENZA VACCINE (Season Ended) 2025 HEPATITIS B VACCINE Aged Out No longe r eligible based on patient's age to complete this topic HIB VACCINE Aged Out No longer eligi ble based on patient's age to complete this topic HPV VACCINE Aged Out No longer eligi ble based on patient's age to complete this topic MENINGOCOCCAL (Group B) VACC INE SHARED DECISION-MAKING Aged Out No longer eligibl e based on patient's age to complete this topic MENINGOCOCCAL GROUPS A/C/Y/W VACCINE Aged Out No longer eligible b ased on patient's age to complete this topic Insurance [employer] [facility] Care Teams Circular Knitter Relationship Specialty Start Date End Date Noble Claire MD [address] [place] [address] PCP - General 09/18/18
--- OUTSIDE RECORDS SUMMARY | 2024-10-23 14:55 | XMS_ITS | Encounter Summary ---
Author Organization [facility] Address [address] [place] [address] Care Team Providers Care Plant Clerk Name Role Phone Noble Claire MD Primary Care Provider [phone] Encounter Details Date Type Department Care Team (Late st Contact Info) Description 09/19/2018 Lab Requisition [facility] Care Derm[facility] Lab [address] [facility], [place] [id number] Radames Zaidi MD [facility] [facility] [address] [place] [id number] Social History Tobacco Use Types Packs/Day Years Used Date Smoking Tobacco: Never Assessed Comments Unknown Sex and Gender Information Value Date Recorded Sex Assigned at Not on file Legal Sex Female 4:08 AM CDT Gender Identity Not on file Sexual Orientation Not on file documented as of this encounter Plan of Treatment Not on file documented as of this encounter Procedures Procedure Name Priority Date/Time Associated Diagnosis Comments DERMPATH SLIDE CONSULT Routine 09/19/2018 12:00 AM CDT documented in this encounter Results * DERMPATH SLIDE CONSULT (09/19/2018 12:00 AM CDT) Case Report Dermatopathology Report Case: [id number] Authorizing Provider: Radames Zaidi MD Collected: 09/19/2018 12:00 AM Pathologist: Diamond Moser MD Received: 09/19/2018 10:06 AM Specimen: Slide(s), Right dorsal foot, [id number]# [id number] 1:34 PM CDT DERMATOPATHOLOGY LABORATORY Final Diagnosis Specimen A. Slide(s), Right dorsal foot, [id number]# [id number]: LENTIGINOUS MELANOCYTIC NEVUS, JUNCTIONAL TYPE, IRRITATED (JUNCTIONAL MELANOCYTIC NEVUS WITH ARCHITECTURAL DISORDER); PRESENT AT MARGIN (D22.71) SPONGIOTIC DERMATITIS WITH EOSINOPHILS (L30.8) (see microscopic description and comment) 1:34 PM [facility][NOTE 3] DERMATOPATHOLOGY LABORATORY Clinical History Materials received from: [facility] [address] [place] [address] Received at the request of Dr. Radames Zaidi, a consult will be performed on 4 slide(s) and 1 block(s) labeled [id number]. Junctional nevus. All slides returned. Any additional sections, special stains or immunohistochemical stains performed by our laboratory will be kept here on file. 1:34 PM [facility][NOTE 3] DERMATOPATHOLOGY LABORATORY Microscopic Description Specimen A. Slide(s), Right dorsal foot, OSC# [id number]: This is a junctional nevus. There is melanin pigment in the stratum corneum. There is architectural disorder characterized by a lentiginous proliferation of melanocytes between irregular nests of cells along the dermal-epidermal junction, highlighted by provided Melan-A immunohistochemical staining. There is underlying fibroplasia of the papillary dermis. Adjacent to the nevus, there is focal parakeratosis and spongiosis. In the dermis there is a mainly superficial perivascular lymphohistiocytic inflammatory infiltrate with eosinophils. Original and deeper sections were reviewed. The junctional nevus is present at the lateral margin of the specimen. COMMENT: The differential diagnosis for these histologic findings includes a junctional lentiginous nevus with superimposed contact dermatitis or stasis dermatitis versus a Meyerson's nevus. Since this lesion involves the margin of the specimen, these histologic findings may not be sales representative gas service of the entire lesion. Clinicopathologic correlation is recommended. 1:34 PM [facility][NOTE 3] DERMATOPATHOLOGY LABORATORY Disclaimer An external and internal positive and negative controls are appropriate for the histochemical, immunohistochemical and immunofluorescence stain(s) in this case (if any), except where stated explicitly. The performance characteristics of the stain(s) cited in this report were developed and its performance characteristic determined by the Dermatopathology Laboratory at [facility], directed by Dr. Darshan Alexander. These tests need not be, and therefore are not, approved by the [place] Food and Drug Administration. The tests are used for clinical purposes. Billing Codes Specimen Charges Stain Charges 00677 1 9 1:34 PM CDT DERMATOPATHOLOGY LABORATORY Embedded Images 9 1:34 PM CDT DERMATOPATHOLOGY LABORATORY Pathology/Cytolog y SLIDE / Unknown 09/19/2018 09/19/2018 10:06 AM CDT Radames Zaidi MD LAB - PATHOLOGY/CYTOLOGY ORDER SARAH Final Result DERMATOPATHOLOGY LABORATORY [facility] - Department of Dermatology [address] [facility], 5th Floor Lab [address] [phone] documented in this encounter Visit Diagnoses Not on filedocumented in this encounter Care Teams Plant Clerk Relationship Specialty Start Date End Date Noble lCaire MD [address] [place] [address] PCP - General 09/18/18 documented as of this encounter
== END 2024-10-23 13:58 | disposition home or self-care (01) ==
LOC: ANHIMG 13:58
PROVIDERS: PCP Family Medicine; Visit Provider Student in an Organized Health Care Education/Training Program
DX: Z78.0 Asymptomatic menopausal state (principal)
CPT/HCPCS: 77080